=== PATIENT | female | born 1940 | race Caucasian/White ===

== ENCOUNTER → 2017-05-10 | Outpatient (CLI) | payer MEDICARE, BC ==
--- NOTE | 2017-05-11 08:58 | DEXA ---
AP SPINE L1 - L4 1.345 1.2 3.0 LT FEMUR TOTAL 0.792 -1.7 0.1 RT FEMUR TOTAL 0.783 -1.8 0.0 TOTAL BODY TOTAL OTHER DUAL FEMUR FRAX* ASSESSMENT Risk factors: Not performed. 10 year probability of fracture Major osteoporotic fracture % Hip fracture % COMMENTS: Normal bone densitometry of the spine. There is low bone density of the hips. Lumbar scoliosis. The density of the spine is increased 6.8% since the initial exam on 03/2001. The spine density has decreased 3.9% since the most recent exam on 04/2015. The density of the left hip has decreased 12.2% since the initial exam on 2000. The density of the left hip has decreased 2.8% since the most recent exam on 2014. The density of the right hip has decreased 7.2% since the initial exam on 2000. The density of the right hip has decreased 2.5% since the most recent exam on 2014. FOLLOW-UP: Recommendation for the next bone density exam: 2 years. [facility]
== END ==
LOC: M WHC 09:52
PROVIDERS: ATTEND Internal Medicine Medical Oncology
DX: M89.9 Disorder of bone, unspecified (principal); Z13.820 Encounter for screening for osteoporosis; Z78.0 Asymptomatic menopausal state; M85.80 Other specified disorders of bone density and structure, unspecified site; M41.86 Other forms of scoliosis, lumbar region

== ENCOUNTER → 2017-10-14 | Outpatient (REF) | payer MEDICARE, BC ==
[2017-10-14 16:06] LABS: URIC ACID 5.2 MG/DL (2.6-6.0)
== END ==
LOC: M LAB REF 13:35
DX: R25.2 Cramp and spasm (principal)
CPT/HCPCS: 84550

== ENCOUNTER → 2018-02-17 | Outpatient (CLI) | payer MEDICARE, BC ==
[~2018-02-17] MED LIST: ISOVUE-370 76% 100ML VIAL (Q9967) As Ordered
== END ==
LOC: M RAD 09:35
DX: R31.9 Hematuria, unspecified (principal)
CPT/HCPCS: Q9967

== ENCOUNTER → 2018-05-28 | Outpatient (CLI) | payer MEDICARE, BC | LOC: M ADAMS 16:15 | DX: R05 Cough (principal); R06.02 Shortness of breath | CPT/HCPCS: 71046 ==

== ENCOUNTER 2018-07-04 16:12 | Emergency (ER) | payer MEDICARE, BC ==
[2018-07-04] MEDS: ACETAMINOPHEN 325 MG TAB PO (19:23)
== END 2018-07-04 20:45 | disposition home or self-care (01) ==
LOC: M ED 16:12
DX: S00.03XA Contusion of scalp, initial encounter (principal); W20.8XXA Other cause of strike by thrown, projected or falling object, initial encounter; Y92.098 Other place in other non-institutional residence as the place of occurrence of the external cause; E11.9 Type 2 diabetes mellitus without complications; I10 Essential (primary) hypertension; H40.9 Unspecified glaucoma; Z88.1 Allergy status to other antibiotic agents; C50.919 Malignant neoplasm of unspecified site of unspecified female breast; Z79.899 Other long term (current) drug therapy; Z79.4 Long term (current) use of insulin
CPT/HCPCS: 70450

== ENCOUNTER → 2018-11-10 | Outpatient (CLI) | payer MEDICARE, BC ==
[~2018-11-10] MED LIST changes: +ATOR1TAB21 PO; +EXEM25TA PO; +GABA-843 PO; +HUMA100I5; -ISOVUE-370 76% 100ML VIAL (Q9967) As Ordered; +LISI-538 PO; +SYNT112T2 PO; +TRES1INJ
--- NOTE | 2018-11-10 12:40 | REP ---
LEFT HIP, TWO VIEWS: HISTORY: Hip pain. There is no acute fracture or dislocation. There is mild narrowing of the joint space with associated sclerosis. Calcification is present lateral to the joint space. This represents ligamentous or tendon calcification. IMPRESSION: Degenerative change as described above. Electronically Signed by Marcello Lan MD 11/10/2018 12:43 P
== END ==
LOC: M ADAMS 12:01
PROVIDERS: ATTEND Physician Assistant
DX: M16.12 Unilateral primary osteoarthritis, left hip (principal); M25.552 Pain in left hip

== ENCOUNTER → 2019-06-12 | Outpatient (CLI) | payer MEDICARE, BC ==
--- NOTE | 2019-06-13 15:23 | DEXA ---
AP SPINE L1 - L4 1.240 0.7 2.5 LT FEMUR TOTAL 0.768 -1.9 0.0 LT NECK 0.724 -2.3 0.2 RT FEMUR TOTAL 0.733 -2.2 -0.3 RT NECK 0.738 -2.2 -0.1 TOTAL BODY TOTAL OTHER COMMENTS: Normal bone densitometry of the spine. There is low bone density of the hips. The decreased density of the spine does represent a significant change. The decreased density of the left hip does represent a significant change. The decreased density of the right hip does represent a significant change. The density of the spine has decreased 1.5% since the initial exam on 03/14/2001. The spine density has decreased 7.8% since the most recent exam on 05/10/2017. The density of the left hip has decreased 14.9% since the initial exam on 03/14/2001. The density of the left hip has decreased 3.0% since the most recent exam on 05/10/2017. The density of the right hip has decreased 13.2% since the initial exam on 06/28/2006. The density of the right hip has decreased 6.4% since the most recent exam on 05/10/2017. FOLLOW-UP: Recommendation for the next bone density exam: 2 years. [facility]
== END ==
LOC: M WHC 13:34
PROVIDERS: ATTEND Internal Medicine
DX: M85.80 Other specified disorders of bone density and structure, unspecified site (principal)

== ENCOUNTER → 2019-06-22 | Outpatient (REF) | payer MEDICARE, BC | LOC: M LAB REF 13:40 | PROVIDERS: ATTEND Internal Medicine Endocrinology, Diabetes & Metabolism | DX: E04.1 Nontoxic single thyroid nodule (principal) ==

== ENCOUNTER 2019-07-30 14:12 | Emergency (ER) | payer MEDICARE, BC ==
[~2019-07-30] VITALS: Ht 162.6 cm; Wt 69.1 kg
[2019-07-30] MEDS ORDERED: VITA100T59 PO (14:37)
[2019-07-30] MEDS ORDERED: CALC500T52 PO (14:37)
[2019-07-30] MEDS ORDERED: CVS400CA PO (14:37)
[2019-07-30] MEDS ORDERED: LATA0.0015 OU (14:37)
[2019-07-30] MEDS ORDERED: ASPI-1 PO (14:37)
[2019-07-30] MEDS ORDERED: ACETAMINOPHEN 325 MG TAB PO ONE (15:45)
[2019-07-30 15:53] LABS: BASO # 0.1 10^3/uL (0.0-0.2); BASO % 0.9 % (0.0-1.0); EOS # 0.1 10^3/uL (0.0-0.5); EOS % 1.8 % (0.0-3.0); HEMATOCRIT 40.1 % (36.0-47.0); HEMOGLOBIN 12.5 g/dl (12.0-15.5); LYMPH # 0.8 10^3/uL (1.5-5.0); LYMPH % 11.9 % (24.0-44.0); MEAN CORPUSCULAR HGB CONC 31.2 g/dl (32.0-36.5); MEAN CORPUSCULAR VOLUME 96.2 fl (80.0-96.0); MONO # 0.5 10^3/uL (0.0-0.8); MONO % 7.2 % (0.0-5.0); NEUTROPHILS # 5.5 10^3/uL (1.5-8.5); NEUTROPHILS % 77.9 % (36.0-66.0); PLATELET COUNT, AUTOMATED 202 10^3/uL (150-450); RED BLOOD COUNT 4.17 10^6/uL (4.00-5.40); WHITE BLOOD COUNT 7.1 10^3/uL (4.0-10.0)
[2019-07-30 15:56] LABS: C REACTIVE PROTEIN QUANTITATIV 0.68 MG/DL (0.00-0.30); CALCIUM LEVEL 9.3 MG/DL (8.8-10.2); CREATININE FOR GFR 1.44 MG/DL (0.55-1.30); GLOMERULAR FILTRATION RATE 37.5 (>39); POTASSIUM SERUM 4.4 MEQ/L (3.5-5.1)
[2019-07-30 16:35] LABS: ERYTHROCYTE SEDIMENTATION RATE 9 mm/hr (0-30)
[2019-07-30 17:06] VITALS: BP 140/80
--- NOTE | 2019-07-31 06:58 | REP ---
CT scan of the brain without contrast: History: Headache. History of blunt force trauma. Comparison head CT study July 04, 2018. CT findings: Preliminary digital powder coat painter radiograph is unremarkable. The bony calvarium has an intact appearance. No skull fracture or significant scalp hematoma is appreciated. There is minimal vascular calcification in the distal carotid arteries. No intraorbital abnormality is seen. There is a mild pattern of periventricular low density consistent with small vessel changes. There is no evidence of intracranial hemorrhage. No infarct, mass, extra-axial fluid collection, or midline shift is seen. Findings are unchanged from the comparison study. Impression: No acute intracranial abnormality. No skull fracture or intracranial injury seen. Electronically Signed by Vitaliy Cobb MD 07/31/2019 08:37 A
== END 2019-07-30 17:40 | disposition home or self-care (01) ==
LOC: M ED 14:12
DX: R51 Headache (principal); E86.0 Dehydration; E11.9 Type 2 diabetes mellitus without complications; I10 Essential (primary) hypertension; Z87.828 Personal history of other (healed) physical injury and trauma; Z88.1 Allergy status to other antibiotic agents; Z79.899 Other long term (current) drug therapy; Z79.4 Long term (current) use of insulin; Z79.82 Long term (current) use of aspirin

== ENCOUNTER → 2019-08-22 | Outpatient (REF) | payer MEDICARE, BC ==
[~2019-08-22] MED LIST changes: +ASPI-1 PO; +CALC500T52 PO; +CVS400CA PO; +LATA0.0015 OU; +VITA100T59 PO
== END ==
LOC: M LAB REF 12:10
PROVIDERS: ATTEND Internal Medicine Endocrinology, Diabetes & Metabolism
DX: E04.1 Nontoxic single thyroid nodule (principal)

== ENCOUNTER → 2019-09-21 | Outpatient (REF) | payer MEDICARE, BC ==
[2019-09-21 19:01] LABS: ALBUMIN 3.7 GM/DL (3.2-5.2); CALCIUM LEVEL 9.2 MG/DL (8.8-10.2); CREATININE FOR GFR 1.36 MG/DL (0.55-1.30); PHOSPHORUS LEVEL 3.3 MG/DL (2.5-4.9); POTASSIUM SERUM 4.1 MEQ/L (3.5-5.1)
== END ==
LOC: M LAB REF 17:49
PROVIDERS: ATTEND Internal Medicine Nephrology
DX: N18.3 Chronic kidney disease, stage 3 (moderate) (principal)